=== PATIENT | female | born 1985 | race Two or more races ===

== ENCOUNTER 2022-08-14 09:46 | Outpatient (CLI) | payer OTHER ==
[2022-08-14] MEDS ORDERED: PRENA1 TRUE CO1 EACH PO (10:48)
[2022-08-14] MEDS ORDERED: PEPCID AC10 MG PO (10:49)
[2022-08-14] MEDS ORDERED: IRON325 MG PO (10:51)
== END 2022-08-14 13:43 | disposition home or self-care (01) ==
LOC: OBS/DEL 09:46
PROVIDERS: ATTEND Obstetrics & Gynecology Gynecology
DX: O16.3 Unspecified maternal hypertension, third trimester (principal); Z3A.35 35 weeks gestation of pregnancy

== ENCOUNTER 2022-09-01 12:48 | Inpatient (IN) | payer OTHER ==
[~2022-09-01] VITALS: Ht 167.6 cm; Wt 78.9 kg
[~2022-09-01 12:48] MED LIST: IRON325 MG PO; PEPCID AC10 MG PO; PRENA1 TRUE CO1 EACH PO
[2022-09-01] MEDS ORDERED: ORTHO DF 3,7751 EACH (13:10)
== END 2022-09-03 11:53 | disposition home or self-care (01) | DRG 807 ==
LOC: LDR 12:48 → OB/GYN 17:31
PROVIDERS: ADMIT Obstetrics & Gynecology; ATTEND Obstetrics & Gynecology
PROC: 10E0XZZ Delivery of Products of Conception, External Approach (ICD-10-PCS; principal; 2022-09-01)
PROC: 0KQM0ZZ Repair Perineum Muscle, Open Approach (ICD-10-PCS; 2022-09-01)
PROC: 4A1HXCZ Monitoring of Products of Conception, Cardiac Rate, External Approach (ICD-10-PCS; 2022-09-01)
DX: O70.1 Second degree perineal laceration during delivery (principal); Z37.0 Single live birth; Z3A.38 38 weeks gestation of pregnancy; Z20.822 Contact with and (suspected) exposure to COVID-19